=== PATIENT | female | born 1955 | race African-American/Black ===

== ENCOUNTER 2017-04-03 03:25 | Inpatient (IN) | payer MEDICARE, OTHER ==
[~2017-04-03] VITALS: Ht 172.7 cm; Wt 110.2 kg
[~2017-04-03 03:25] MED LIST: ASPI-864 PO; COLE3.75 PO; COR6 PO; FURO40TA5 PO; ISOS60TA4 PO; LEVO175T7 PO; LISI40TA4 PO; METF500T4 PO; ROSU10TA PO; XALAO EACHEYE
[2017-04-03] MEDS ORDERED: NITROGLYCERIN OINT 1GM/INCH UDPKT TD ONE (03:30)
[2017-04-03] MEDS ORDERED: ASPIRIN 81MG TABLET PO ONE (03:30)
[2017-04-03] MEDS ORDERED: METHYLPREDNISOLONE SOD SUCC 125 MG/2 ML VIAL IV STA (03:42)
[2017-04-03] MEDS ORDERED: IPRATROPIUM BROMIDE (0.02%) 0.5MG/2.5ML NEB HHN STA (03:42)
[2017-04-03] MEDS: ALBUTEROL (0.083%) 2.5MG/3ML NEB HHN SCH ×3 (03:50→04:50)
[2017-04-03] MEDS ORDERED: ALBUTEROL (0.5%) 2.5MG/0.5ML NEB HHN ONE (03:54)
[2017-04-03 03:58] LABS: BASOPHILS % 1.2 % (0.0-2.0); EOSINOPHILS % 4.3 % (0.0-5.0); HEMOGLOBIN. 10.9 g/dL (12.0-16.0); LYMPHOCYTES % 30.9 % (20.0-50.0); MEAN CORPUSCULAR HEMOGLOBIN 24.6 pg (28.0-32.0); MEAN CORPUSCULAR VOLUME 78.7 fL (81.0-99.0); MEAN PLATELET VOLUME 8.7 fl (7.4-10.4); MONOCYTES % 6.7 % (2.0-8.0); NEUTROPHILS % 56.9 % (40.0-76.0); PLATELET 233 x1000/uL (130-400); RED BLOOD CELL COUNT 4.45 mill/uL (4.2-5.4); RED CELL DISTRIBUTION WIDTH 16.7 % (11.6-14.6)
[2017-04-03 04:12] LABS: CARBON DIOXIDE 29 mEq/L (21-32); CHLORIDE 107 mEq/L (98-107); TROPONIN I 0.26 ng/mL (0.00-0.04)
[2017-04-03 04:38] LABS: BG BILEVEL POS AIRWAY PRESSURE 15/5; BG CARBOXYHEMOGLOBIN 0.3 % (0.5-1.5); BG DEOXYHEMOGLOBIN 0.9 % (0.0-5.0); BG FRACTION INSPIRED OXYGEN 40; BG HCO3 ACT 24.3 mmol/L (22.0-26.0); BG METHEMOGLOBIN 0.3 % (0.0-1.5); BG OXYGEN SATURATION 99.1 % (92.0-98.5); BG OXYHEMOGLOBIN 98.5 % (94.0-97.0); BG PCO2 38.4 mmHg (35.0-45.0); BG PH 7.419 (7.350-7.450); BG PO2 285.4 mmHg (75.0-100.0); BG SAMPLE SITE RIGHT RADIAL; BG TOTAL HEMOGLOBIN 11.8 g/dL (12.0-18.0); BG VENT MODE MASK - BIPAP
[2017-04-03] MEDS ORDERED: MAGNESIUM 2 G PREMIX 50 ML IV ONE (04:45)
[2017-04-03] MEDS ORDERED: ACLI400A2 IH (05:41)
[2017-04-03 12:00] VITALS: BP 127/75
[2017-04-03] MEDS ORDERED: FUROSEMIDE 40MG/4ML VIAL IVP SCH (14:00)
[2017-04-03] MEDS ORDERED: IPRATROPIUM/ALBUTEROL 0.5-3(2.5)MG/3ML NEB HHN PRN (14:00)
[2017-04-03] MEDS ORDERED: CLONIDINE 0.1MG TABLET PO PRN (14:45)
[2017-04-03] MEDS: POTASSIUM CHLORIDE 20MEQ TABLET SR PO SCH ×2 (15:54→19:35)
[2017-04-03 16:00] VITALS: BP 143/71
[2017-04-03] MEDS ORDERED: CARV3.1242 PO (16:12)
[2017-04-03] MEDS ORDERED: FURO-152 PO (16:12)
[2017-04-03 16:16] VITALS: BP 127/75
[2017-04-03] MEDS: IPRATROPIUM/ALBUTEROL 0.5-3(2.5)MG/3ML NEB HHN SCH ×2 (16:22→19:53)
[2017-04-03] MEDS ORDERED: INFLUENZA VIRUS VACCINE 0.5ML SYR IM ONE (17:45)
[2017-04-03] MEDS: FUROSEMIDE 40MG/4ML VIAL IVP SCH (19:35)
[2017-04-03] MEDS: BUDESONIDE 0.5MG/2ML NEB HHN SCH (19:52)
[2017-04-03 20:00] VITALS: BP 150/86
[2017-04-04] VITALS: BP 142/68
[2017-04-04] MEDS: IPRATROPIUM/ALBUTEROL 0.5-3(2.5)MG/3ML NEB HHN SCH ×3 (01:44→13:36)
[2017-04-04 06:09] VITALS: BP 110/60
[2017-04-04 06:47] LABS: BASOPHILS % 0.2 % (0.0-2.0); HEMATOCRIT. 33.9 % (36.0-48.0); HEMOGLOBIN. 11.1 g/dL (12.0-16.0); LYMPHOCYTES % 19.4 % (20.0-50.0); MEAN CORPUSCULAR HEMOGLOBIN 25.5 pg (28.0-32.0); MEAN CORPUSCULAR VOLUME 78.1 fL (81.0-99.0); MEAN PLATELET VOLUME 9.4 fl (7.4-10.4); MONOCYTES % 8.7 % (2.0-8.0); NEUTROPHILS % 71.7 % (40.0-76.0); PLATELET 264 x1000/uL (130-400); RED BLOOD CELL COUNT 4.35 mill/uL (4.2-5.4)
[2017-04-04 07:01] LABS: CHLORIDE 106 mEq/L (98-107)
[2017-04-04 07:17] LABS: CARBON DIOXIDE 29 mEq/L (21-32); CREATINE KINASE 88 IU/L (26-192); CREATINE KINASE MB FRACTION 1.3 ng/mL (0.5-3.6); HDL CHOLESTEROL 73 mg/dL (40-59); LDL CHOLESTEROL 80 mg/dL (5-100); TROPONIN I 0.26 ng/mL (0.00-0.04)
[2017-04-04 08:00] VITALS: BP 138/51
[2017-04-04] MEDS: BUDESONIDE 0.5MG/2ML NEB HHN SCH (09:18)
[2017-04-04] MEDS: POTASSIUM CHLORIDE 20MEQ TABLET SR PO SCH ×2 (09:53→17:59)
[2017-04-04] MEDS: FUROSEMIDE 40MG/4ML VIAL IVP SCH ×2 (09:53→17:59)
[2017-04-04 12:21] VITALS: BP 123/69
[2017-04-04 16:03] VITALS: BP 127/71
[2017-04-04 18:58] VITALS: BP 127/71
[2017-04-05] MEDS ORDERED: ENOXAPARIN 40MG/0.4ML SYR SUBCUT SCH (12:00)
== END 2017-04-04 20:48 | disposition home or self-care (01) | DRG 291 ==
LOC: ER 03:33 → 5WST 04:45 → EDBEDREQSVC 04:49 → EDBEDREQ 04:49 → ENRESERV 10:07 → 5WST 12:00
PROVIDERS: ADMIT Internal Medicine; ATTEND Internal Medicine
PROC: 5A09357 Assistance with Respiratory Ventilation, Less than 24 Consecutive Hours, Continuous Positive Airway Pressure (ICD-10-PCS; principal; 2017-04-03)
DX: I11.0 Hypertensive heart disease with heart failure (principal); J96.01 Acute respiratory failure with hypoxia; J44.1 Chronic obstructive pulmonary disease with (acute) exacerbation; D50.9 Iron deficiency anemia, unspecified; I42.0 Dilated cardiomyopathy; E11.9 Type 2 diabetes mellitus without complications; I50.23 Acute on chronic systolic (congestive) heart failure; E03.9 Hypothyroidism, unspecified; E66.9 Obesity, unspecified; Z68.36 Body mass index [BMI] 36.0-36.9, adult; E78.00 Pure hypercholesterolemia, unspecified; E78.5 Hyperlipidemia, unspecified; I25.10 Atherosclerotic heart disease of native coronary artery without angina pectoris; I25.5 Ischemic cardiomyopathy; Z86.14 Personal history of Methicillin resistant Staphylococcus aureus infection; Z91.14 Patient's other noncompliance with medication regimen; Z95.1 Presence of aortocoronary bypass graft; Z79.899 Other long term (current) drug therapy; Z88.8 Allergy status to other drugs, medicaments and biological substances
CPT/HCPCS: 36415; 36600; 71010; 80053; 80061; 82375; 82550; 82553; 82805; 83036; 83735; 83880; 84443; 84484; 85025; 85379; 85610; 90686; 93005; 93306; 93970; 94620; 94640; 94660; 94664; 96365; 96375; 99285; J1940; J2930; J3475; J7611; J7620; J7626

== ENCOUNTER 2017-10-22 07:04 | Inpatient (IN) | payer MEDICARE, OTHER ==
[~2017-10-22] VITALS: Ht 172.7 cm; Wt 110.7 kg
[2017-10-22] VITALS (7 sets, daily range): BP systolic 120–150; BP diastolic 57–108
[~2017-10-22 07:04] MED LIST changes: +ACLI400A2 IH; +CARV3.1242 PO; -COLE3.75 PO; -COR6 PO; +FURO-152 PO; -FURO40TA5 PO; -ISOS60TA4 PO; -LISI40TA4 PO; -METF500T4 PO
[2017-10-22] MEDS ORDERED: IODIXANOL 320MG/ML 100 ML BOTTLE IV ONE ×3 (08:08→09:52)
[2017-10-22] MEDS ORDERED: LIDOCAINE HCL/PF 1% 10 MG/ML 30ML VIAL ONE (08:09)
[2017-10-22] MEDS ORDERED: MIDAZOLAM HCL 2 MG/2 ML VIAL ONE (08:28)
[2017-10-22] MEDS ORDERED: FENTANYL CITRATE/PF 50MCG/ML 2ML VIAL ONE (08:28)
[2017-10-22] MEDS ORDERED: IOHEXOL-300 100 ML BOTTLE ONE (08:42)
[2017-10-22] MEDS ORDERED: CLOPIDOGREL 75MG TABLET ONE (10:01)
[2017-10-22] MEDS ORDERED: ATROPINE SULFATE 1MG/10ML SYR IV PRN (10:15)
[2017-10-22] MEDS ORDERED: ONDANSETRON HCL 4MG/2ML VIAL IV PRN (10:15)
[2017-10-22] MEDS ORDERED: ACETAMINOPHEN 325MG TABLET PO PRN (10:15)
[2017-10-22] MEDS ORDERED: SODIUM CHLORIDE 0.45% 1,000 ML IV ONE (10:51)
[2017-10-22] MEDS ORDERED: MORPHINE SULFATE 4 MG/ML CPJ (NOT FOR IM USE) IV PRN (10:51)
[2017-10-22] MEDS ORDERED: HYDROCODONE/ACETAMINOPHEN 5/325MG TABLET PO PRN (13:45)
[2017-10-22] MEDS ORDERED: HYDRALAZINE 20MG/ML VIAL IV PRN (13:45)
[2017-10-22] MEDS ORDERED: DEXTROSE 50% WATER 50ML SYRINGE IV PRN ×2 (13:45)
[2017-10-22] MEDS ORDERED: NICARDIPINE 100MCG/ML 10ML VIAL (CATH LAB) IV ONE (13:54)
[2017-10-22] MEDS ORDERED: NITROGLYCERIN 50MCG/ML 10ML VIAL (CATH LAB) IV ONE (13:54)
[2017-10-22] MEDS ORDERED: ADENOSINE 12MCG/ML 10ML VIAL (CATH LAB) IV ONE (13:54)
[2017-10-22] MEDS ORDERED: HEPARIN SODIUM 1,000 UNIT/1ML VIAL IV ONE (13:54)
[2017-10-22] MEDS: BLOOD SUGAR DIAGNOSTIC STRIP TEST SCH ×2 (17:19→21:18)
[2017-10-22] MEDS: INSULIN LISPRO 100 UNITS/ML SUBCUT SCH ×2 (17:20→21:00)
[2017-10-22] MEDS: CARVEDILOL 3.125 MG TABLET PO SCH (21:39)
[2017-10-23] VITALS (9 sets, daily range): BP systolic 123–166; BP diastolic 19–100
[2017-10-23] MEDS: BLOOD SUGAR DIAGNOSTIC STRIP TEST SCH ×2 (06:42→12:32)
[2017-10-23 06:45] LABS: BASOPHILS % 0.9 % (0.0-2.0); EOSINOPHILS % 2.6 % (0.0-5.0); HEMATOCRIT. 33.6 % (36.0-48.0); HEMOGLOBIN. 10.8 g/dL (12.0-16.0); LYMPHOCYTES % 32.6 % (20.0-50.0); MEAN CORPUSCULAR HEMOGLOBIN 24.9 pg (28.0-32.0); MEAN CORPUSCULAR VOLUME 77.6 fL (81.0-99.0); MEAN PLATELET VOLUME 8.9 fl (7.4-10.4); MONOCYTES % 10.2 % (2.0-8.0); NEUTROPHILS % 53.7 % (40.0-76.0); PLATELET 228 x1000/uL (130-400); RED BLOOD CELL COUNT 4.33 mill/uL (4.2-5.4); RED CELL DISTRIBUTION WIDTH 18.1 % (11.6-14.6)
[2017-10-23] MEDS ORDERED: LEVOTHYROXINE SODIUM 175MCG TABLET PO SCH (06:50)
[2017-10-23] MEDS: INSULIN LISPRO 100 UNITS/ML SUBCUT SCH ×2 (06:57→12:20)
[2017-10-23 07:11] LABS: CHLORIDE 108 mEq/L (98-107)
[2017-10-23 07:25] LABS: LDL CHOLESTEROL 52 mg/dL (5-100)
[2017-10-23 07:27] LABS: HDL CHOLESTEROL 49 mg/dL (40-59)
[2017-10-23] MEDS ORDERED: CLOPIDOGREL 75MG TABLET PO SCH (09:00)
[2017-10-23] MEDS ORDERED: ASPIRIN 325MG TABLET PO SCH (09:00)
[2017-10-23] MEDS: CARVEDILOL 3.125 MG TABLET PO SCH (09:52)
== END 2017-10-23 15:45 | disposition home or self-care (01) | DRG 247 ==
LOC: CCL 07:04 → 3WST 07:05
PROVIDERS: ADMIT Specialist; ATTEND Specialist
PROC: 4A023N7 Measurement of Cardiac Sampling and Pressure, Left Heart, Percutaneous Approach (ICD-10-PCS; principal; 2017-10-22)
PROC: 027135Z Dilation of Coronary Artery, Two Arteries with Two Drug-eluting Intraluminal Devices, Percutaneous Approach (ICD-10-PCS; 2017-10-22)
PROC: B2111ZZ Fluoroscopy of Multiple Coronary Arteries using Low Osmolar Contrast (ICD-10-PCS; 2017-10-22)
PROC: B2181ZZ Fluoroscopy of Left Internal Mammary Bypass Graft using Low Osmolar Contrast (ICD-10-PCS; 2017-10-22)
PROC: B2151ZZ Fluoroscopy of Left Heart using Low Osmolar Contrast (ICD-10-PCS; 2017-10-22)
DX: T82.858A Stenosis of other vascular prosthetic devices, implants and grafts, initial encounter (principal); I25.110 Atherosclerotic heart disease of native coronary artery with unstable angina pectoris; I11.9 Hypertensive heart disease without heart failure; E78.5 Hyperlipidemia, unspecified; E03.9 Hypothyroidism, unspecified; E11.9 Type 2 diabetes mellitus without complications; I25.5 Ischemic cardiomyopathy; I44.7 Left bundle-branch block, unspecified; E78.00 Pure hypercholesterolemia, unspecified
CPT/HCPCS: 36415; 80048; 80061; 82962; 83036; 83735; 84443; 85025; 85347; 92928; 92929; 93005; 93459; C1769; C1874; C1887; C1893; J0153; J1644; J2250; J3010; J3490; Q9967